=== PATIENT | male | born 1985 | race Hispanic/Latino ===

== ENCOUNTER 2021-06-17 20:40 | Emergency (ER) | payer SELFPAY ==
[2021-06-17] MEDS ORDERED: Ketorolac Tromethamine 30 MG/ML VIAL ONE (22:09)
[2021-06-17] MEDS ORDERED: Boostrix 0.5 ML (Tdap) VIAL ONE (22:10)
== END 2021-06-18 01:50 ==
LOC: EDBD 20:40 → CSHERS 20:40
DX: S02.2XXA Fracture of nasal bones, initial encounter for closed fracture (principal); S00.83XA Contusion of other part of head, initial encounter; S00.511A Abrasion of lip, initial encounter; Z23 Encounter for immunization; Y04.0XXA Assault by unarmed brawl or fight, initial encounter
CPT/HCPCS: 70450; 70486; 72125; 90471; 90715; 96374; J1885